=== PATIENT | female | born 1995 | race Hispanic/Latino ===

== ENCOUNTER 2023-03-07 13:30 | Emergency (ER) | payer MEDICAID, OTHER ==
[~2023-03-07] VITALS: Ht 167.6 cm; Wt 99.8 kg
[2023-03-07 13:41] VITALS: BP 141/100; PULSE 82; RESP 18
== END 2023-03-07 15:24 | disposition home or self-care (01) ==
LOC: EDH 13:30
DX: R05.9 Cough, unspecified (principal); Z98.890 Other specified postprocedural states
CPT/HCPCS: 99281